=== PATIENT | male | born 1935 | race Caucasian/White ===

== ENCOUNTER 2024-11-10 06:09 | Outpatient (REF) | payer MEDICARE, SELFPAY ==
--- OUTSIDE RECORDS SUMMARY | 2024-11-10 06:12 | XMS_ITS | Patient Health Record ---
Author Organization [facility] Address [address] [place] [address] Care Team Providers Care Purchase Price Analyst Name Role Phone Vini Mckinley MD Primary Care Provider Unavaila BHUPINDER Scott Unavailable Migration, Provider Unavailable Unavailable Reason For Referral No Information Medications Medication SIG (Take, Route, Frequency, Duration) Notes Start Date End Date Status Aspirin Low Dose *Please review and pick correct strength-formulatio n from [employer] options. If intended option is not shown, discontinue and re-order from Quick Search* Active amLODIPine Besylate *Please revi ew and pick correct strength-formulatio n from [employer] options. If intended option is not shown, discontinue and re-order from Quick Search* Active Pyridium 200 MG 1 tab(s) orally 3 times a day PRN for 6 day(s) 11/21/2009 Active SEPTRA DS 800 MG-160 MG 1 TAB(S) ORALLY 2 TIMES A DAY for 7 DAY(S) *Please review for potential replacement for e-prescription and drug interaction check* 11/21/2009 Active Encounters Encounter Location Date Provider Diagnosis [facility] [address] [place] [address] 09/03/2024 Provider Migration Plan Of Treatment No Information Insurance Providers Payer Name Payer Address Payer Phone Subscriber Number Group Number Insured Name Patient Relationship to Insured Coverage Start Date Coverage End Date MEDICARE [address] [place] [phone] [id number] Kraig Alvarez Self - patient is the insured [facility] - Med [address] [place] [address] [id number] Kraig Alvarez Self - patient is the insured Medical (General) History Medical History History ICD Code HTN Surgical History Surgery Date(Month/Year) Appendectomy 1946
--- OUTSIDE RECORDS SUMMARY | 2024-11-10 06:12 | XMS_ITS | Clinical Summary ---
Author Organization [facility] Address [address] [place] [address] Phone Care Team Providers Care Storm Window Installer Name Role Phone Hemanth Garcia MD Primary Care Provider [phone] Allergies Active Allergy Reactions Criticality Noted Date Comments Zolpidem Hallucinations 09/14/2023 Medications bisacodyL (DULCOLAX) 5 mg EC tablet Take 2 tablets (10 mg total) by mouth 1 (one) time each day if needed for constipation. Do not crush, chew, or split. 14 tablet 4 Active polyethylene glycol (MIRALAX) 17 gram packet Take 17 g by mouth 1 (one) time each day if needed for constipation. 119 g 4 Active docusate sodium (COLACE) 100 mg capsule Take 1 capsule (100 mg total) by mouth 2 (two) times a day if needed for constipation for up to 60 doses. 60 capsule 4 Active amLODIPine (NORVASC) 5 mg tablet Take 1 tablet (5 mg total) by mouth daily. 3 Active cyanocobalamin (VITAMIN B-12) 100 mcg tablet Take 1 tablet (100 mcg total) by mouth 1 (one) time each day. Active cholecalciferol (VITAMIN D-3) 25 mcg (1,000 unit) tablet Take 1 tablet (1,000 Units total) by mouth 1 (one) time each day. Active Surgical History Surgery Date Site/Laterality Comments APPENDECTOMY BLADDER SURGERY PROCEDURE? NOT SURE Medical History Medical History Date Comments Constipation Hypertension Abdominal pain Family History Medical History Relation Name Comments Colon cancer Mother Relation Name Status Comments Mother Social History Tobacco Use Types Packs/Day Years Used Date Smoking Tobacco: Never Smokeless Tobacco: Never Tobacco Cessation:Counseling Given: Not Answered Alcohol Use Standard Drinks/Week Comments Yes 2 (1 standard drink = 0.6 oz pur e alcohol) Sex and Gender Information Value Date Recorded Sex Assigned at Not on file Legal Sex Male 1:54 PM EDT Gender Identity Not on file Sexual Orientation Not on file Obstetrics History Last Filed Vital Signs Vital Sign Reading Time Taken Comments Blood Pressure 132/80 09/22/2023 11:44 AM EDT Pulse 78 09/22/2023 11:44 AM EDT Temperature 36.4 ??C (97.5 ??F) 09/14/2023 3:54 PM ED T Respiratory Rate 18 09/22/2023 11:44 AM EDT Oxygen Saturation 97% 09/14/2023 6:45 PM EDT Inhaled Oxygen Concentration - - Weight 68 kg (150 lb) 09/22/2023 11:44 AM EDT Height 172.7 cm (5' 8 ) 09/22/2023 11:44 AM EDT Body Mass Index 22.81 09/22/2023 11:44 AM EDT Plan of Treatment Health Maintenance Due Date Last Done Comments DTaP,Tdap,and Td Vaccines (1 - Tdap) 1954 Pneumococcal Vaccine: 50+ Ye ars (1 of 1 - PCV) 1985 Zoster Vaccines (1 of 2) 1985 RSV Immunization Adult Patie nts (1 - 1-dose 75+ series) 2010 Cholesterol Screening (Lipid Panel) 09/14/2023 Falls Risk Assessment 09/14/2023 Medicare Annual Wellness Visit 09/14/2023 Social Influencers of Health Screening 09/14/2023 COVID-19 Vaccine (2 - 2023-2 5 season) 2024 09/05/2020 Hypertension/CHF/CAD Annual BMP Blood Test 09/13/2024 09/14/2023 Depression Screening 09/21/2024 09/22/2023 Influenza Vaccine (Season Ended) 2025 HIB Vaccines Aged Out No longer eligi ble based on patient's age to complete this topic HPV Vaccines Aged Out No longer eligi ble based on patient's age to complete this topic Hepatitis A Vaccines Aged Out No long er eligible based on patient's age to complete this topic Hepatitis B Vaccines Aged Out No long er eligible based on patient's age to complete this topic IPV Vaccines Aged Out No longer eligi ble based on patient's age to complete this topic MMR Vaccines Aged Out No longer eligi ble based on patient's age to complete this topic Meningococcal ACWY Vaccine Aged Out N o longer eligible based on patient's age to complete this topic Meningococcal B Vaccine Aged Out No l onger eligible based on patient's age to complete this topic RSV Immunization Patients Un shelli 20 months Aged Out No longer eligible b ased on patient's age to complete this topic Varicella Vaccines Aged Out No longer eligible based on patient's age to complete this topic Procedures Procedure Name Priority Date/Time Associated Diagnosis Comments COMPREHENSIVE METABOLIC PANEL STAT 09/14/2023 4:09 PM EDT from Last 3 Months or Most Recently Relevant to Health Maintenance Results * (ABNORMAL) Comprehensive metabolic panel (09/14/2023 4:09 PM EDT) Sodium 142 136 - 145 mmol/L LAB CHEMISTRY METHOD 09/14/2023 5:02 PM T [facility] Potassium 4.5 3.5 - 5.1 mmol/L LAB CHEMISTRY METHOD 09/14/2023 5:02 PM [facility] Chloride 105 98 - 107 mmol/L LAB CHEMISTRY METHOD 09/14/2023 5:02 PM [facility] CO2 29 21 - 31 mmol/L LAB CHEMISTRY METHOD 09/14/2023 5:02 PM [facility] Anion Gap 8 5 - 15 LAB CHEMISTRY METHOD 09/14/2023 5:02 PM [facility] Glucose 87 74 - 109 mg/dL LAB CHEMISTRY METHOD 09/14/2023 5:02 PM [facility] BUN 20 7 - 25 mg/dL LAB CHEMISTRY METHOD 09/14/2023 5:02 PM [facility] Creatinine 0.97 0.70 - 1.30 mg/dL LAB CHEMISTRY METHOD 09/14/2023 5:02 PM [facility] eGFR 75 >=60 mL/min/1. 73m2 LAB CHEMISTRY METHOD 09/14/2023 5:02 PM [facility] Comment:Calculation based on the??Chronic Kidney Disease Epidemiology Collaboration (CKD-EPI) equation refit??without adjustment for race. BUN/Creatinine Ratio 20.6(H) 6.0 - 20.0 LAB CHEMISTRY METHOD 09/14/2023 5:02 PM [facility] Calcium 9.9 8.6 - 10.3 mg/dL LAB CHEMISTRY METHOD 09/14/2023 5:02 PM [facility] AST (SGOT) 15 13 - 39 unit/L LAB CHEMISTRY METHOD 09/14/2023 5:02 PM [facility] ALT (SGPT) 11 7 - 52 unit/L LAB CHEMISTRY METHOD 09/14/2023 5:02 PM [facility] Alkaline Phosphatase 68 34 - 104 unit/L LAB CHEMISTRY METHOD 09/14/2023 5:02 PM [facility] Total Protein 7.2 6.4 - 8.9 g/dL LAB CHEMISTRY METHOD 09/14/2023 5:02 PM [facility] Globulin, Total 2.9 1.4 - 3.9 g/dL LAB CHEMISTRY METHOD 09/14/2023 5:02 PM [facility] A/G Ratio 1.5 >1.0 LAB CHEMISTRY METHOD 09/14/2023 5:02 PM [facility] Total Bilirubin 0.7 0.3 - 1.0 mg/dL LAB CHEMISTRY METHOD 09/14/2023 5:02 PM [facility] Albumin 4.3 3.5 - 5.7 g/dL LAB CHEMISTRY METHOD 09/14/2023 5:02 PM EDT [facility] Blood Venous blood specimen / Unknown Venipuncture / Unknown 09/14/2023 4:09 PM EDT 09/14/2023 4:13 PM EDT us Yvan Welsh MD LAB BLOOD ORDERABLES Final Res ult [facility] [address] [place] [address], [place] [phone] from Last 3 Months or Most Recently Relevant to Health Maintenance Insurance MEDICARE [employer] - [place] MEDICARE ADVANTAGE [facility] Care Teams Storm Window Installer Relationship Specialty Start Date End Date Hemanth Garcia MD [address] [place] [address] [address] [place], [place] PCP - General Internal Medicine 09/14/23
--- OUTSIDE RECORDS SUMMARY | 2024-11-10 06:13 | XMS_ITS ---
Author Organization [facility] Address [address] [place] [address] Care Team Providers Care Assistant Manager Trainee Name Role Phone Vini Mckinley MD Primary Care Provider Unavaila BHUPINDER Scott Unavailable Migration, Provider Unavailable Unavailable [facility]ISIT [facility] Encounter Medications Medication SIG (Take, Route, Frequency, Duration) Notes Start Date End Date Status Aspirin Low Dose *Please review and pick correct strength-formulatio n from [employer] options. If intended option is not shown, discontinue and re-order from Quick Search* Active amLODIPine Besylate *Please revi ew and pick correct strength-formulatio n from [employer]span options. If intended option is not shown, [...] Location Date Provider Diagnosis [facility] [address] [place] [address] 09/03/2024 Provider Migration Plan Of Treatment Medication Medication Name Sig Start Date Stop Date Notes Pyridium 200 MG 1 tab(s) orally 3 times a day PRN for 6 day(s) 11/21/2009 SEPTRA DS 800 MG-160 MG 1 TAB(S) ORALLY 2 TIMES A DAY for 7 DAY(S) 11/21/2009 *Please review for potential replacement for e-prescription and drug interaction check* Progress Notes * Kraig ALVAREZ RDOB: [birth year] (89 yo M)Acc No.[id number]:09/03/2024 Patient:Kraig FERNANDEZ Provider:?Provider Migration :1935???Age:89 Y???Sex:Male Jalen e:09/03/2024 Address:[address] [place], [place] [id number] Pcp:Vini Mckinley MD Subjective: * Chief Complaints: * ???1. Multum To [employer] Con version Encounter. * Medical History:? * Medications:?Taking amLODIPi ne Besylate , Notes to Pharmacist: *Please review and pick correct strength-formulation from [employer] options. If intended option is not shown, discontinue and re-order from Quick Search*, Taking Aspirin Low Dose , Notes to Pharmacist: *Please review and pick correct strength-formulation from [employer] options. If intended option is not shown, discontinue and re-order from Quick Search* Objective: * Vitals:? Assessment: Plan: * Treatment: * Images: Billing Information: * Visit Code:? * Procedure Codes:? * Electronic signature of Prov ider Migration on 11/10/2024 at 06:12 AM EDT Sign off status: Pending * Provider:?Provider Migration Date:?09/03 Generated for Marti nielsen/Giuliano/Jose Eliassmitting on:?11/10/2024 06:12 AM EDT
== END 2024-11-10 06:10 | disposition home or self-care (01) ==
LOC: HO.MMNH1L 06:09
PROVIDERS: Visit Provider Nurse Practitioner Family
DX: Z13.89 Encounter for screening for other disorder (principal)